=== PATIENT | male | born 1980 | race Caucasian/White ===

== ENCOUNTER 2022-12-09 21:49 | Emergency (ER) | payer SELFPAY ==
[2022-12-09 21:55] VITALS: BP 130/90; PULSE 88; RESP 18; TEMP 36.8; O2SAT 96; BMI 23.7
--- NOTE | 2022-12-09 22:02 | PC.NURSE ---
Left foot 2nd toe slightly red at tip and nail slightly bruised. Ice provided
--- NOTE | 2022-12-09 22:09 | XR_ITS ---
The [address] [address] Patient Name: HELEN HARVEY MRN: [id number] date: 1980 Sex: M Assigned Patient Location: ER Current Patient Location: ED.MAIN Accession/Order Number: [id number] Exam Date: 12/09/2022 22:28 Report Date: 12/09/2022 23:00 At the request of: HEBER MCCLENDON Procedure: XR foot LT min 3V EXAM: XR foot LT min 3V HISTORY: foot injury COMPARISON: None. TECHNIQUE: 3 views of the left foot are performed. FINDINGS: There is no acute fracture. The bony structures are intact. Joint spaces are maintained. Unremarkable soft tissues. There is a tiny plantar calcaneal spur. IMPRESSION: No acute bony abnormality. Electronically authenticated by: MARLENE BENNETT Date: 12/09/2022 23:00
--- NOTE | 2022-12-09 22:10 | ED.LOWEXI1 ---
HPI - Extremity Injury (Lower) General Chief Complaint: Extremity Injury, Lower Stated Complaint: LOWER EXTREMITY LT FOOT/TOES Time Seen by Provider: 12/09/22 22:03 Source: patient Mode of arrival: walk-in History of Present Illness HPI Narrative: accidentally kicked the step near his pool tonight. He injured the left 3rd toe. He thinks that the nail might have bent back . He is concerned that the nail might fall off or get caught on something . He complains of pain throughout the left 3rd toe. No other injury or area of pain. Related Data Home Medications Medication Instructions Recorded Confirmed No Known Home Medications 12/09/22 12/09/22 Allergies Allergy/AdvReac Type Severity Reaction Status Date / Time No Known Drug Allergies Allergy Verified 12/09/22 21:58 Exam Narrative Exam Narrative: Nurses notes and vital signs reviewed and patient is not hypoxic. AFEBRILE General: Well-appearing and in no apparent distress. Skin: Warm, dry, no pallor noted. No abrasion or laceration to the left foot or toes Head: Normocephalic, atraumatic. Cardiovascular: normal peripheral perfusion. Respiratory: No accessory muscle use or respiratory distress. Musculoskeletal: tenderness throughout the left 3rd toe. Nail appears intact proximally and less than 10% subungual hematoma; remainder of the left foot with normal ROM, no calf or popliteal tenderness, no lower extremity edema/swelling Neurological: A&O x4. No cranial nerve dysfunction observed. No truncal ataxia. Moves all extremities. Sensation intact. Psychiatric: Cooperative and interactive. Normal mood and affect. Constitutional Vital Signs - 24 hr 12/09/22 21:55 Temperature 98.2 F Pulse Rate [Monitor] 88 Respiratory Rate 18 Blood Pressure [Left Arm] 130/90 H Pulse Oximetry 96 Oxygen Delivery Method Room Air Course Vital Signs Vital signs: Vital Signs Temperature 98.2 F 12/09/22 21:55 Pulse Rate 88 12/09/22 21:55 Respiratory Rate 18 12/09/22 21:55 Blood Pressure 130/90 H 12/09/22 21:55 Pulse Oximetry 96 12/09/22 21:55 Oxygen Delivery Method Room Air 12/09/22 21:55 Temperature 98.2 F 12/09/22 21:55 Pulse Rate 88 12/09/22 21:55 Respiratory Rate 18 12/09/22 21:55 Blood Pressure 130/90 H 12/09/22 21:55 Pulse Oximetry 96 12/09/22 21:55 Oxygen Delivery Method Room Air 12/09/22 21:55 MDM - Extremity Injury (Lower) MDM Narrative Medical decision making narrative: patient wanted xrays of the foot. I applied a band-aid to the left 3rd toe. After he got his xrays, he left the department - said he did not want to wait for the results since it probably wasn't broken . Xrays negative for fracture. Imaging Data xr foot: Radiologist's impression: Patient Name: HELEN HARVEY MRN: [id number] date: 1980 Sex: M Assigned Patient Location: ER Current Patient Location: ED.MAIN Accession/Order Number: [id number] Exam Date: 12/09/2022 22:28 Report Date: 12/09/2022 23:00 At the request of: HEBER MCCLENDON Procedure: XR foot LT min 3V EXAM: XR foot LT min 3V HISTORY: foot injury COMPARISON: None. TECHNIQUE: 3 views of the left foot are performed. FINDINGS: There is no acute fracture. The bony structures are intact. Joint spaces are maintained. Unremarkable soft tissues. There is a tiny plantar calcaneal spur. IMPRESSION: No acute bony abnormality. Electronically authenticated by: MARLENE BENNETT Date: 12/09/2022 23:00 Discharge Plan Discharge Chief Complaint: Extremity Injury, Lower Clinical Impression: Contusion of third toe of left foot Patient Disposition: Home, Self-Care Time of Disposition Decision: 23:05 Condition: Good Mode of Transportation: Private Vehicle Prescriptions / Home Meds: No Action No Known Home Medications Instructions: Contusion in Adults (ED) Stand Alone Forms: Portal Instructions Referrals: Physician,Non-Staff, MD [Primary Care Provider] - 1 week
== END 2022-12-09 23:36 | disposition home or self-care (01) ==
PROVIDERS: Emergency Provider Emergency Medicine
DX: S90.122A Contusion of left lesser toe(s) without damage to nail, initial encounter (principal); W22.8XXA Striking against or struck by other objects, initial encounter
CPT/HCPCS: 73630; 99283